=== PATIENT | male | born 1985 | race Hispanic/Latino ===

== ENCOUNTER 2018-04-15 18:29 | Observation (INO) | payer SELFPAY ==
[2018-04-15] MEDS ORDERED: Diltiazem HCl 125 MG, Admixture Fee 1 EACH in Sodium Chloride 0.9% 100 ML IVPB SCH (19:00)
[2018-04-15] MEDS ORDERED: Digoxin 0.5 MG/2 ML AMP ONE (19:10)
[2018-04-15 19:50] LABS: Troponin I Less than 0.010 ng/mL (< 0.028)
[2018-04-15 22:43] LABS: Amphetamine Not Detected (NotDetected); Barbiturates Screen Not Detected (NotDetected); Benzodiazepine Screen Not Detected (NotDetected); Cocaine Metabolite Screen Not Detected (NotDetected); Medtox Reader # READER 4; Methamphetamine Not Detected (NotDetected); Opiate Screen Not Detected (NotDetected); Oxycodone Screen Not Detected (NotDetected); Phencyclidine (PCP) Not Detected (NotDetected); THC/Cannabinoid Screen Not Detected (NotDetected); Tricyclic Screen Not Detected (NotDetected)
[2018-04-15 22:44] LABS: Medtox Control Line Valid? VALID (VALID); Methadone Not Detected (NotDetected)
[2018-04-15 22:58] LABS: Troponin I Less than 0.010 ng/mL (< 0.028)
[2018-04-15 23:50] VITALS: BMI 51.7
[2018-04-16] MEDS ORDERED: Enoxaparin Sodium 120 MG/0.8 ML SYRINGE SC SCH (00:40)
[2018-04-16] MEDS ORDERED: Acetaminophen 325 MG TAB PO PRN (00:40)
[2018-04-16] MEDS ORDERED: Enoxaparin Sodium 40 MG/0.4 ML SYRINGE SC SCH (00:40)
[2018-04-16] MEDS ORDERED: Diltiazem 125 MG in Sodium Chloride 0.9% 100 ML IVPB SCH (00:45)
[2018-04-16 01:30] LABS: ALT (SGPT) 37 U/L (8-55); AST (SGOT) 19 U/L (5-34); Albumin 4.2 g/dL (3.5-5.0); Alkaline Phosphatase 61 U/L (40-150); Anion Gap 15 mmol/L (10-20); BUN (Urea Nitrogen) 9 mg/dL (8.9-20.6); Bilirubin, Total 0.5 mg/dL (0.2-1.2); Calc. Creatinine Clearance 284 mL/min (70-130); Calcium 9.9 mg/dL (7.8-10.44); Carbon Dioxide 23 mmol/L (22-29); Chloride 106 mmol/L (98-107); Estimated GFR-MDRD Greater than 90; Globulin 3.2 g/dL (2.4-3.5); Glucose 124 mg/dL (70-105); Potassium 3.6 mmol/L (3.5-5.1); Protein, Total 7.4 g/dL (6.0-8.3); Sodium 140 mmol/L (136-145)
[2018-04-16] MEDS: Sodium Chloride 0.9% 1,000 ML IV SCH ×2 (01:47→17:30)
--- NOTE | 2018-04-16 04:18 | HP ---
REASON FOR ADMISSION: New-onset atrial fibrillation with RVR. HISTORY OF PRESENTING ILLNESS: Patient gives history of waking up with palpitations and shortness of breath around 10 in the morning. He also developed headache and chest pressure-like feeling. His left arm was tingling as well. He took 4 tablets of 81 mg aspirin. Around 12:00 p.m., patient went to his mom's house and was still feeling dizzy. His and other family members finally prompted him to go to [facility]. On arrival there, patient was found to be in atrial fibrillation with RVR. He was given a total of 20 mg IV push Cardizem x2 and was placed on 10 mg an hour Cardizem drip and was transferred here. Currently, he has no complaints of chest pressure, headache, or shortness of breath. He currently has converted to sinus rhythm, as I examine him. No complaints of cough or expectoration. Patient has never had any prior cardiac workup. He has never had atrial fibrillation in the past. PAST MEDICAL AND SURGICAL HISTORY: Anxiety disorder, morbid obesity, weighing nearly 167 kilos. CURRENT MEDICATIONS: None. ALLERGIES: No known drug allergies. PERSONAL HISTORY: Does not abuse alcohol or drugs. No history of smoking, but chews tobacco. FAMILY HISTORY: Mother has hypertension and diabetes. Father of throat cancer which had metastasized to spine and other places at the age of 59 years. Patient owns a food truck. CODE STATUS: FULL. Power of contracts attorney is his . REVIEW OF SYSTEMS: The following complete review of systems was negative, unless otherwise mentioned in the HPI or below: Constitutional: Weight loss or gain, ability to conduct usual activities. Skin: Rash, itching. Eyes: Double vision, pain. ENT/Mouth: Nose bleeding, neck stiffness, pain, tenderness. Cardiovascular: Palpitations, dyspnea on exertion, orthopnea. Respiratory: Shortness of breath, wheezing, cough, hemoptysis, fever, or night sweats. Gastrointestinal: Poor appetite, abdominal pain, heartburn, nausea, vomiting, constipation, or diarrhea. Genitourinary: Urgency, frequency, dysuria, nocturia. Musculoskeletal: Pain, swelling. Neurologic/Psychiatric: Anxiety, depression. Allergy/Immunologic: Skin rash, bleeding tendency. PHYSICAL EXAMINATION: GENERAL: The patient is a 33-year-old male who is currently not in any acute distress. VITAL SIGNS: Blood pressure 130/98, pulse is 80 at present, respiratory rate 16 per minute, temperature 98.4 degrees Fahrenheit, saturating 96% on room air. NECK: Supple, no elevated JVD. HEENT: Extraocular muscles intact. Pupils reacting to light. Oral cavity mucous membranes are moist. No exudates or congestion. CARDIOVASCULAR SYSTEM: S1, S2 heard. Regular rhythm. RESPIRATORY SYSTEM: Air entry 1+ bilaterally. No rales or rhonchi. ABDOMEN: Soft, bowel sounds heard. No tenderness, rigidity, or guarding. EXTREMITIES: No peripheral edema or calf tenderness. VASCULAR SYSTEM: Peripheral pulses 1+ bilateral, no ischemic ulcerations or gangrene. CENTRAL NERVOUS SYSTEM: No gross focal deficits noted. Patient is alert, awake , oriented well. PSYCHIATRIC SYSTEM: The patient's mood is euthymic. No hallucinations or delusions. LABORATORY DATA AND X-RAY FINDINGS: White count of 11, H&H 16 and 47, platelet count 309, MCV is 90 with 74% neutrophils. PT, INR, PTT within normal limits. Magnesium is 1.8. Troponin x3 is negative. CK-MB 1.7. TSH 1.09. Urine drug screen is negative. Chest x-ray done shows mild cardiomegaly, otherwise no acute infiltrate. EKG done at 6:37 p.m. shows atrial fibrillation with RVR at 159 beats per minute. Repeat EKG done at 10:15 p.m. shows him to be in normal sinus rhythm. CLINICAL IMPRESSION AND PLAN: Patient will be under observation on telemetry for atrial fibrillation with rapid ventricular response. He is currently on 7.5 mg an hour of Cardizem, we will bring him down to 5 mg an hour as the patient is in sinus rhythm. Please note patient received Cardizem IV push 20 mg x2, digoxin 0.5 mg IV x1, was on Cardizem 10 mg an hour and finally converted to sinus rhythm. We will continue him at 5 mg [address] hour and place him on Lopressor 25 mg twice daily for now. He will be on aspirin 81 mg daily. One full dose of Lovenox will be given for a total of 160 mg of Lovenox 1 dose per kg body weight now. He will be on normal saline at 60 mL per hour. We will obtain echo with 2D Doppler for LV function and to rule out thrombus. We will also consult Dr. Rao on-call for Cardiology. Lipid profile will be obtained as well. The patient is morbidly obese and was counseled regarding lifestyle changes including healthy eating and losing weight. We will obtain thyroid function tests in the morning including free T3, free T4 and TSH as well. GAGANDEEP
[2018-04-16 05:33] LABS: #Basophils 0.1 thou/uL (0.0-0.2); #Eosinphils 0.2 thou/uL (0.0-0.7); #Lymphocytes 3.7 thou/uL (1.20-3.40); #Monocytes 0.7 thou/uL (0.11-0.59); #Neutrophils 7.8 thou/uL (1.40-6.50); %Basophils 0.5 % (0.0-1.0); %Eosinophils 1.8 % (0.0-10.0); %Lymphocytes 29.6 % (21.0-51.0); %Monocytes 5.6 % (0.0-10.0); %Neutrophils 62.4 % (42.0-75.0); Hemoglobin 15.2 g/dL (14.0-18.0); Mean Corpuscular HGB CONC 35.6 g/dL (32.0-36.0); Mean Corpuscular Hemoglobin 32.9 pg (27.0-31.0); Mean Corpuscular Volume 92.4 fL (78.0-98.0); Mean Platelet Volume 7.2 fL (7.4-10.4); Platelet Count 283 thou/uL (130-400); RBC Distribution Width 11.9 % (11.5-14.5); Red Blood Cell (RBC) Count 4.61 mill/uL (4.70-6.10); White Blood Cell (WBC) Count 12.5 thou/uL (4.8-10.8)
[2018-04-16 05:53] LABS: Anion Gap 14 mmol/L (10-20); BUN (Urea Nitrogen) 10 mg/dL (8.9-20.6); Calc. Creatinine Clearance 295 mL/min (70-130); Calcium 9.9 mg/dL (7.8-10.44); Carbon Dioxide 25 mmol/L (22-29); Cardiac Risk 4.8 (Less than 4.5); Chloride 105 mmol/L (98-107); Cholesterol 150 mg/dl (< 200 Desired); Estimated GFR-MDRD Greater than 90; Glucose 123 mg/dL (70-105); HDL Cholesterol 31 mg/dL (>60 Neg Risk); LDL Cholesterol, Calculated 49 mg/dL; Potassium 3.6 mmol/L (3.5-5.1); Sodium 140 mmol/L (136-145); Triglycerides 348 mg/dL (Less than 150)
[2018-04-16] MEDS: Metoprolol Tartrate 25 MG TAB PO SCH ×2 (08:45→19:44)
[2018-04-16] MEDS: Famotidine 20 MG TAB PO SCH ×2 (08:47→19:44)
--- NOTE | 2018-04-16 12:41 | CON-2 ---
DATE OF CONSULTATION: 04/16/2018 CONSULTING PHYSICIAN: Dr. Becky Rao CHIEF COMPLAINT: Irregular heartbeat. HISTORY OF PRESENT ILLNESS: This is a 33-year-old male who came in yesterday around midday when he woke up in the morning around 10:00 a.m. and started having irregular heartbeat, chest pressu re, having shortness of breath. A couple hours later, he reported having some dizziness. He said he tried sitting around for a couple hours, it did not go away. Denied any vision changes. He said he had some tingling in his left arm. He said he took a couple aspirin, but nothing seemed to make it better. This time he was brought into the ER, was found to be in atrial fibrillation with RVR. He w as given 2 doses of 20 mg IV Cardizem, given digoxin 0.05 mg IV as well. He would be placed on a Car dizem drip at 10 mg. He would eventually convert to sinus rhythm around 10:00 at night. They then c ut back his Cardizem to 5 mg IV and eventually his Cardizem was stopped earlier this morning. The adal best is currently in sinus rhythm, not having any chest pain. Denies any dizziness at this time. F eeling better. In talking with the patient, does report the patient having trouble snoring at night, seems to b e short of breath. The patient reports too sometimes when he has his neck in certain positions he do es get shortness of breath as well. Patient is 168 kilograms. PAST MEDICAL HISTORY: Anxiety. PAST SURGICAL HISTORY: None. MEDICATIONS: None. ALLERGIES: No known drug allergies. SOCIAL HISTORY: He was a 1 pack per day smoker for 12 years, he quit 8 years ago. Occasional alcoho l use, no illicit drug use. FAMILY HISTORY: Mother has hypertension, diabetes. Father of throat cancer. 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 REVIEW OF SYSTEMS: All review of systems are negative, unless noted in the history of present illnes s. At this time, cardiac, denied any chest pain, denied any shortness of breath. Denied any wheezin g. PHYSICAL EXAMINATION: VITAL SIGNS: Temperature was 98.0, pulse was 73, respirations 14, O2 is 97% on room air, blood press ure was 175/77. GENERAL: Alert and oriented, atraumatic. CARDIOVASCULAR: Regular rate and rhythm. No murmurs or gallops. No edema noted in the lower extrem ities. LUNGS: Clear to auscultation bilaterally. No wheezes or crackles. EXTREMITIES: Moves all extremities. No abnormality noted. IMAGING: Chest x-ray shows borderline heart size. Initial EKG showed atrial fibrillation with RVR and then repeat EKG showed conversion to sinus rhythm around 10:00 last night. ASSESSMENT AND PLAN: 1. New onset atrial fibrillation. 2. Suspected hypertension. 3. Morbid obesity. 4. Suspected sleep apnea. PLAN: At this time, we will continue the Lopressor 25 mg b.i.d. for rate control. We will also give him some samples of Xarelto for a couple weeks and recommend that the patient follow up with PCP to continue getting his blood pressure checked and get his blood pressure under control. Also talked wi th him extensively about weight loss and how it would help with his suspected sleep apnea. Also kennedy mmended he can get a sleep study depending on the patient.
--- NOTE | 2018-04-16 23:29 | PDOC.PN ---
- Subjective Encounter Start Date: 04/16/18 Encounter Start Time: 19:00 Subjective: nsg notes rev, ivana ovn, pt's at bedside -: pt no new c/o, discussed risk factor modification and lifestyle changes - Objective Resuscitation Status: Resuscitation Status FULL:Full Resuscitation Vital Signs & Weight: Vital Signs (12 hours) Temp Pulse Resp BP Pulse Ox 04/16/18 20:07 98.0 F 82 18 04/16/18 19:35 98.0 F 82 18 133/73 96 04/16/18 16:11 98.1 F 82 14 131/73 98 04/16/18 11:45 98.3 F 80 16 138/69 98 Weight Weight 371 lb 6.4 oz I&O: 04/15/18 04/16/18 04/17/18 06:59 06:59 06:59 Intake Total 1328 Output Total 325 Balance -325 1328 Result Diagrams: 04/16/18 04:31 04/16/18 04:31 Phys Exam - Physical Examination Constitutional: NAD HEENT: PERRLA, moist MMs, sclera anicteric Neck: no nodes, no JVD Respiratory: no wheezing, no rales, no rhonchi, clear to auscultation bilateral Cardiovascular: RRR, no significant murmur, no rub Gastrointestinal: soft, non-tender, no distention, positive bowel sounds Musculoskeletal: no edema, pulses present Neurological: moves all 4 limbs Psychiatric: normal affect, A&O x 3 Dx/Plan - Plan cont current plan of care * afib with RVR * pending ECHO * rate ctrlled on metoprolol * asa obesity * d/w pt elev TG and need for lifestyle modification, weight loss, and re- assessment in the near future * both pt and able to complete teachback diet: as above activity: as corwin dvt ppx Review of Systems - Medications/Allergies Allergies/Adverse Reactions: Allergies Allergy/AdvReac Type Severity Reaction Status Date / Time No Known Drug Allergies Allergy Verified 04/16/18 00:04
[2018-04-17] MEDS: Famotidine 20 MG TAB PO SCH (08:34)
[2018-04-17] MEDS: Metoprolol Tartrate 25 MG TAB PO SCH (08:34)
--- NOTE | 2018-04-17 10:13 | ADD-PRG ---
ADDENDUM DATE OF SERVICE: 04/16/2018 Echocardiogram was done today showed normal left ventricular function, mildly enlarged left atrium. No valvular heart disease. The blood pressures were taken with a large cuff are all normal 130/70. ASSESSMENT: Atrial fibrillation paroxysmal, CHADS VASc 0. PLAN: 1. Go home on metoprolol 25 mg twice a day. 2. Precaution, we gave him Xarelto to take 20 mg a day for 2 weeks only. Long-term anticoagulation not indicated with CHADS VASc 0.
--- NOTE | 2018-04-17 10:21 | PRG ---
DATE OF SERVICE: 04/17/2018 HISTORY: Mr. Borrego is doing well, no complaints. He feels well. His rhythm remains sinus rhythm. PHYSICAL EXAMINATION: VITAL SIGNS: His blood pressure when it was taken with a large cuff is normal 117/62, pulse 74. LUNGS: Clear. CARDIAC: Normal S1, S2. Echocardiogram showed normal left ventricular function, mildly enlarged left atrium. ASSESSMENT: 1. Paroxysmal atrial fibrillation. 2. Morbid obesity. 3. Probably underlying sleep apnea. 4. Candido Vas 0, long-term anticoagulation not indicated. PLAN: 1. Go home on metoprolol 25 mg twice a day. 2. Follow up with primary care physician. 3. Discussed with the patient about getting a pulse oximeter, as most the easy and relatively accura te way of checking his heart rate if he is concerned. 3. I will be glad to see him if he has problems. He understands long-term weight loss is the most i mportant thing he can do to try to prevent recurrence of fibrillation. I also discussed sleep study, but he indicates that there would be a financial barrier for him. If he does have sleep apnea the m ost important thing to do is lose weight, which he understands. He is 5 foot 11 inches tall, 370 batsheva nds.
[2018-04-17] MEDS: Sodium Chloride 0.9% 1,000 ML IV SCH (13:26)
[2018-04-17 14:43] VITALS: BP 137/65; TEMP 98.2
== END 2018-04-17 14:58 | disposition home or self-care (01) ==
LOC: ERS 18:29 → 2NO 23:43
PROVIDERS: ADMIT Internal Medicine; ATTEND Internal Medicine
DX: I48.0 Paroxysmal atrial fibrillation (principal); F41.9 Anxiety disorder, unspecified; E66.01 Morbid (severe) obesity due to excess calories; Z87.891 Personal history of nicotine dependence; Z68.43 Body mass index [BMI] 50.0-59.9, adult
CPT/HCPCS: 36415; 80053; 80061; 80306; 83735; 84443; 85025; 93005; 93306; 94760; 96365; 96366; 96372; 96375; 96376; 99406; A4216; G0378; J1160; J1650; J7050

== ENCOUNTER 2018-05-07 11:51 | Observation (INO) | payer OTHER, SELFPAY ==
[~2018-05-07 11:51] MED LIST: ISOVUE-370 76%-LOCM 1 ML ONE
[2018-05-07 12:15] LABS: #Eosinphils 0.1 thou/uL (0.0-0.7); #Lymphocytes 1.8 thou/uL (1.20-3.40); #Monocytes 0.4 thou/uL (0.11-0.59); %Basophils 0.4 % (0.0-1.0); %Eosinophils 0.7 % (0.0-10.0); %Lymphocytes 19.4 % (21.0-51.0); %Neutrophils 75.5 % (42.0-75.0); Hemoglobin 16.3 g/dL (14.0-18.0); Mean Corpuscular HGB CONC 35.3 g/dL (32.0-36.0); Mean Corpuscular Hemoglobin 32.6 pg (27.0-31.0); Mean Corpuscular Volume 92.4 fL (78.0-98.0); Mean Platelet Volume 7.3 fL (7.4-10.4); Platelet Count 260 thou/uL (130-400); RBC Distribution Width 11.4 % (11.5-14.5); Red Blood Cell (RBC) Count 4.98 mill/uL (4.70-6.10); White Blood Cell (WBC) Count 9.3 thou/uL (4.8-10.8)
[2018-05-07 12:37] LABS: ALT (SGPT) 50 U/L (8-55); AST (SGOT) 25 U/L (5-34); Albumin 4.7 g/dL (3.5-5.0); Alkaline Phosphatase 63 U/L (40-150); Anion Gap 14 mmol/L (10-20); BUN (Urea Nitrogen) 13 mg/dL (8.9-20.6); Bilirubin, Total 0.4 mg/dL (0.2-1.2); CK (CPK) 135 U/L (30-200); Calc. Creatinine Clearance 0 mL/min (70-130); Carbon Dioxide 24 mmol/L (22-29); Chloride 106 mmol/L (98-107); Estimated GFR-MDRD 87; Globulin 3.6 g/dL (2.4-3.5); Glucose 118 mg/dL (70-105); Potassium 3.9 mmol/L (3.5-5.1); Protein, Total 8.3 g/dL (6.0-8.3); Sodium 140 mmol/L (136-145)
[2018-05-07 12:39] LABS: INR-International Normal Ratio 1.1; PTT 31.1 SEC (22.9-36.1); Prothrombin Time 13.8 SEC (12.0-14.7)
[2018-05-07 12:40] LABS: CKMB 0.9 ng/mL (0-6.6); Troponin I Less than 0.010 ng/mL (< 0.028)
--- NOTE | 2018-05-07 13:54 | RAD ---
PORTABLE CHEST: 05/07/2018 PROVIDED CLINICAL HISTORY: Dyspnea. COMPARISON: 04/15/2018 FINDINGS: The cardiac silhouette appears prominent, likely this is partially on the basis of the portable techn ique. No focal consolidation, pleural fluid, or pneumothorax apparent. IMPRESSION: No evidence for an acute cardiopulmonary process. POS: [facility]
--- NOTE | 2018-05-07 15:33 | CT ---
CT PULMONARY ANGIOGRAM WITH IV CONTRAST AND 3D MIP RECONSTRUCTIONS: Date: 05-07-18 Provided Clinical History: Dyspnea. Chest pain. FINDINGS: There is no evidence for central or segmental pulmonary embolus. Minimal coronary calcium is seen. Th e heart, pericardium and great vessels appear otherwise unremarkable for the phase of contrast in [facility] this study was acquired. The lungs are free of significant opacity. No pleural fluid or pneumothor ax apparent. The airway appears patent and of normal caliber. The visualized portions of the upper ab domen demonstrate no acute abnormality. The osseous structures demonstrate no concerning lytic or lindsey stic lesions. IMPRESSION: 1. No evidence for central or segmental pulmonary embolus 2. Minimal coronary calcium. POS: [facility]
[2018-05-07 16:41] LABS: Troponin I Less than 0.010 ng/mL (< 0.028)
[2018-05-07] MEDS ORDERED: Ondansetron HCl/PF 4 MG/2 ML Vial IVP PRN (17:46)
[2018-05-07] MEDS ORDERED: Acetaminophen 325 MG TAB PO PRN (17:46)
[2018-05-07] MEDS ORDERED: Ondansetron ODT 4 MG TAB SL PRN (17:46)
[2018-05-07 17:54] VITALS: BMI 50.2
[2018-05-07 19:39] LABS: Troponin I 0.032 ng/mL (< 0.028)
[2018-05-07] MEDS ORDERED: Metoprolol Tartrate 25 MG TAB PO SCH (22:45)
[2018-05-07] MEDS: ALPRAZolam 0.25 MG TAB PO PRN (23:00)
[2018-05-08 01:15] LABS: Troponin I Less than 0.010 ng/mL (< 0.028)
--- NOTE | 2018-05-08 02:39 | HP ---
TIME OF EVALUATION: 8:45 p.m. CODE STATUS: FULL CODE. PRIMARY CARE PHYSICIAN: Clarice Sanchez MD CHIEF COMPLAINT: Chest pain and shortness of breath. HISTORY OF PRESENT ILLNESS: This is a 33-year-old male patient with past medical history of obesity, recently admitted and discharged from the hospital due to new onset atrial fibrillation, has been st arted on beta-blockers, was supposed to follow up with Dr. Rao, as reported he is unable to follow with him due to financial issues. He came to the hospital after having a chest pain, that has been on and off, usually lasted for 15-20 minutes, with no clear triggers, no alleviating factors. When t he pain is present, pain can be moderate about 5/10. He also reported associated generalized weaknes s and also having dizzy spells. In one occasion, he was not able to continue driving. REVIEW OF SYSTEMS: Constitutional: No fever or chills or generalized weakness. Respiratory: No co ugh or sputum production or shortness of breath. Cardiovascular: The patient reports no chest pain, palpitations, shortness of breath. Symptoms are reported as above. Gastrointestinal: No nausea or vomiting, diarrhea or abdominal pain. Central Nervous Systems: No dizziness, headache, or feeling lightheaded. Genitourinary: No burning on urination. Extremities: No leg swelling. All other sys tems were reviewed and are negative except for the findings mentioned above. PAST MEDICAL HISTORY: Positive for morbid obesity, atrial fibrillation, recently diagnosed. PAST SURGICAL HISTORY: No surgical history. PSYCHIATRIC HISTORY: Anxiety. SOCIAL HISTORY: Drinks socially every week. No drug use. No smokes. ALLERGIES: No known drug allergies. REPORTED MEDICATIONS: Alprazolam, paroxetine, metoprolol, aspirin. PHYSICAL EXAMINATION: VITAL SIGNS: On presentation, heart rate 101, respiratory rate 19, temperature 98.8, pain was 8/10, oxygen saturation 96% on room air. GENERAL APPEARANCE: Patient is alert, oriented, in no any acute distress. HEAD AND EYES: Normal conjunctivae, moist oral mucosa, anicteric. NECK: No JVD. RESPIRATORY: Bilateral air entry. No rales, no wheezing. Symmetric expansion. CARDIOVASCULAR: Normal rate, regular rhythm. No murmurs, no gallop, no edema. ABDOMEN: Soft, normal bowel sounds. MUSCULOSKELETAL: Baseline range of motion and strength. No tenderness. SKIN: Warm and intact. No pallor, no rash, no redness. NEUROLOGIC: Baseline sensorium. No evidence of any new focal weakness. Baseline speech. Cranial n erve seems to be intact. PSYCHIATRIC: The patient is in good mood. No anxiety. Oriented, optimal judgement. IMAGING: EKG was reviewed. The patient's EKG shows a sinus rhythm with short KS, otherwise normal E KG, ventricular rate 97, KS 104, QRS 88, QT corrected 416. The chest CT was negative with . LABORATORY DATA: Reviewed. White count 9.3, hemoglobin 16.3, MCV 92.4, platelet count 260,000. Coa gulation was negative. Sodium 140, potassium 3.9, chloride 106, carbon dioxide 24, anion gap 14, BUN 13, creatinine 0.9, glucose 118. Troponin was done x3. Initial troponin 0.01, second one was 0.032 , then last one was negative. ASSESSMENT AND PLAN: The patient will be placed in the hospital with following medical problem: 1. Chest pain, rule out acute coronary syndrome, patient has history of atrial fibrillation, could b e related to arrhythmia, the patient has been seen by Dr. Rao, was supposed to have followup as ou tpatient, but was unable to. We will consult Dr. Rao for further adjustment medical treatment. S lorena patient has been complaining that the heart rate has been dropping and he has been filling these pills. We will follow recommendations. 2. Morbidly obese. We have counseled the patient regarding benefits of losing weight and we have al so talked about that, he has stated he would like to continue losing weight through Health. 3. History of atrial fibrillation. Reconcile home medications. We will monitor on tele. 4. Deep venous thrombosis prophylaxis. 5. Hyperglycemia, this is mild, blood sugar 190, we will monitor, could be related acute distress ve rsus an intolerance to glucose due to obesity.
[2018-05-08 05:32] LABS: #Basophils 0.1 thou/uL (0.0-0.2); #Eosinphils 0.2 thou/uL (0.0-0.7); #Lymphocytes 3.7 thou/uL (1.20-3.40); #Monocytes 0.6 thou/uL (0.11-0.59); #Neutrophils 6.2 thou/uL (1.40-6.50); %Basophils 0.6 % (0.0-1.0); %Eosinophils 2.3 % (0.0-10.0); %Lymphocytes 34.4 % (21.0-51.0); %Monocytes 5.6 % (0.0-10.0); %Neutrophils 57.2 % (42.0-75.0); Mean Corpuscular HGB CONC 34.8 g/dL (32.0-36.0); Mean Corpuscular Hemoglobin 32.7 pg (27.0-31.0); Mean Corpuscular Volume 94.1 fL (78.0-98.0); Mean Platelet Volume 7.6 fL (7.4-10.4); Platelet Count 240 thou/uL (130-400); RBC Distribution Width 11.5 % (11.5-14.5); Red Blood Cell (RBC) Count 4.29 mill/uL (4.70-6.10); White Blood Cell (WBC) Count 10.9 thou/uL (4.8-10.8)
[2018-05-08 05:54] LABS: Anion Gap 15 mmol/L (10-20); BUN (Urea Nitrogen) 15 mg/dL (8.9-20.6); Calc. Creatinine Clearance 256 mL/min (70-130); Calcium 9.3 mg/dL (7.8-10.44); Carbon Dioxide 23 mmol/L (22-29); Chloride 106 mmol/L (98-107); Estimated GFR-MDRD Greater than 90; Glucose 89 mg/dL (70-105); Potassium 3.7 mmol/L (3.5-5.1); Sodium 140 mmol/L (136-145)
[2018-05-08] MEDS: PARoxetine 20 MG TAB PO SCH (08:07)
[2018-05-08] MEDS: Enoxaparin Sodium 40 MG/0.4 ML SYRINGE SC SCH (08:08)
[2018-05-08] MEDS ORDERED: Loperamide HCl 2 MG CAP PO PRN (08:15)
[2018-05-08] MEDS ORDERED: Sodium Chloride 0.65% Nasal 44 ML BOT EA NARE PRN (08:15)
[2018-05-08] MEDS ORDERED: Acetaminophen 325 MG TAB PO PRN (08:15)
[2018-05-08] MEDS ORDERED: Ondansetron ODT 4 MG TAB PO PRN (08:15)
[2018-05-08] MEDS ORDERED: Milk Of Magnesia 30 ML UDCUP PO PRN (08:15)
[2018-05-08] MEDS ORDERED: Eucerin (Mineral Oil/Petrolatum,White) 30 gm Jar TOP PRN (08:15)
[2018-05-08] MEDS ORDERED: Loratadine 10 MG TAB PO PRN (08:15)
[2018-05-08] MEDS ORDERED: Ondansetron HCl/PF 4 MG/2 ML Vial IVP PRN (08:15)
[2018-05-08] MEDS ORDERED: Famotidine 20 MG TAB PO PRN (08:15)
[2018-05-08] MEDS ORDERED: Mag-Al 1200 mg/1200 mg/30 ML UDCUP PO PRN (08:15)
[2018-05-08] MEDS ORDERED: Artificial Tear Sol 15 ML BOT EA EYE PRN (08:15)
[2018-05-08] MEDS ORDERED: Nitroglycerin 0.4 MG TAB (25 Tab Bottle) SL PRN (08:15)
[2018-05-08] MEDS ORDERED: HYDROcodone/Acetaminophen 5/325 mg Tablet PO PRN (08:15)
[2018-05-08] MEDS ORDERED: hydrALAZINE 20 MG/ML VIAL SLOW IVP PRN (08:15)
[2018-05-08] MEDS ORDERED: Chloraseptic Spray 180 ml Bottle PO PRN (08:15)
[2018-05-08] MEDS ORDERED: Zolpidem Tartrate 5 MG TAB PO PRN (08:15)
[2018-05-08] MEDS ORDERED: Diabetic Tussin 200 MG/10 ML UDCUP PO PRN (08:15)
[2018-05-08] MEDS ORDERED: Senokot 8.6 MG TAB PO PRN (08:15)
[2018-05-08 08:51] LABS: Cardiac Risk 4.5 (Less than 4.5)
[2018-05-08] MEDS ORDERED: Metoprolol Tartrate 25 MG TAB PO SCH (09:00)
[2018-05-08] MEDS ORDERED: Ketorolac Tromethamine 30 MG/ML VIAL IVP SCH (10:45)
--- NOTE | 2018-05-08 13:22 | PDOC.PN ---
- Subjective Encounter Start Date: 05/08/18 Encounter Start Time: 07:50 -: old records requested/rev Patient seen and examined. No new complaints. No overnight events - Objective Resuscitation Status: Resuscitation Status FULL:Full Resuscitation MAR Reviewed: Yes Vital Signs & Weight: Vital Signs (12 hours) Temp Pulse Resp BP Pulse Ox 05/08/18 11:18 98.3 F 64 20 118/60 94 L 05/08/18 08:15 97.4 F L 52 L 20 05/08/18 07:29 97.4 F L 52 L 20 109/55 L 94 L 05/08/18 04:28 98.0 F 61 16 112/55 L 94 L I&O: 05/07/18 05/08/18 05/09/18 06:59 06:59 06:59 Intake Total 400 Balance 400 Result Diagrams: 05/08/18 04:47 05/08/18 04:47 Radiology Reviewed by me: Yes EKG Reviewed by me: Yes Phys Exam - Physical Examination Constitutional: NAD HEENT: PERRLA, moist MMs, sclera anicteric Neck: no JVD, supple Respiratory: no wheezing, no rales, no rhonchi Cardiovascular: RRR, no significant murmur, no rub Gastrointestinal: soft, non-tender, no distention, positive bowel sounds Musculoskeletal: no edema, pulses present Neurological: non-focal, normal sensation, moves all 4 limbs Lymphatic: no nodes Psychiatric: normal affect, A&O x 3 Skin: no rash, normal turgor Dx/Plan (1) Chest pain Code(s): R07.9 - CHEST PAIN, UNSPECIFIED Status: Acute (2) Anxiety and depression Code(s): F41.9 - ANXIETY DISORDER, UNSPECIFIED; F32.9 - MAJOR DEPRESSIVE DISORDER, SINGLE EPISODE, UNSPECIFIED Status: Chronic (3) Morbid obesity with BMI of 50.0-59.9, adult Code(s): E66.01 - MORBID (SEVERE) OBESITY DUE TO EXCESS CALORIES; Z68.43 - BODY MASS INDEX (BMI) 50-59.9 , ADULT Status: Chronic (4) Paroxysmal atrial fibrillation Code(s): I48.0 - PAROXYSMAL ATRIAL FIBRILLATION Status: Chronic - Plan cont current plan of care, plan discussed w/ family * today stress test, if negative will consider discharge * later on US RUQ * will need outpt sleep study to rule out KEELY * toradol one time for headache * medication reviewed as below * symptomatic treatment. Review of Systems - Review of Systems Eyes: negative: Pain, Vision Change, Conjunctivae Inflammation, Eyelid Inflammation, Redness, Other ENT: negative: Ear Pain, Ear Discharge, Nose Pain, Nose Discharge, Nose Congestion, Mouth Pain, Mouth Swelling, Throat Pain, Throat Swelling, Other Respiratory: negative: Cough, Dry, Shortness of Breath, Hemoptysis, SOB with Excertion, Pleuritic Pain, Sputum, Wheezing Cardiovascular: negative: chest pain, palpitations, orthopnea, paroxysmal nocturnal dyspnea, edema, light headedness, other Gastrointestinal: negative: Nausea, Vomiting, Abdominal Pain, Diarrhea, Constipation, Melena, Hematochezia, Other Genitourinary: negative: Dysuria, Frequency, Incontinence, Hematuria, Retention , Other Musculoskeletal: negative: Neck Pain, Shoulder Pain, Arm Pain, Back Pain, Hand Pain, Leg Pain, Foot Pain, Other Skin: negative: Rash, Lesions, [place], Bruising, Other - Medications/Allergies Allergies/Adverse Reactions: Allergies Allergy/AdvReac Type Severity Reaction Status Date / Time No Known Drug Allergies Allergy Verified 04/16/18 00:04 Medications: Current Medications Acetaminophen (Tylenol) 650 mg PO Q4H PRN PRN Reason: Headache/Fever or Mild Pain Hydrocodone Bitart/Acetaminophen ([place] 5/325) 1 tab PO Q4H PRN PRN Reason: Moderate Pain (4-6) Al Hydroxide/Mg Hydroxide (Maalox) 15 ml PO Q4H PRN PRN Reason: Heartburn or Indigestion Alprazolam (Xanax) 0.25 mg PO Q6H PRN PRN Reason: Anxiety Last Admin: 05/07/18 23:00 Dose: 0.25 mg Artificial Tears (Tears Renewed 15ml Bottle) 0 drop EA EYE PRN PRN PRN Reason: Dry Eyes Aspirin (Aspirin Chewable) 81 mg PO DAILY [facility] Last Admin: 05/08/18 08:07 Dose: 81 mg Enoxaparin Sodium (Lovenox) 40 mg SC 0900 [facility] Last Admin: 05/08/18 08:08 Dose: Not Given Famotidine (Pepcid) 20 mg PO BIDPRN PRN PRN Reason: Heartburn or Indigestion Guaifenesin (Robitussin Sf) 200 mg PO Q4H PRN PRN Reason: Cough Hydralazine HCl (Apresoline) 10 mg SLOW IVP Q4H PRN PRN Reason: Systolic BP > 180 Loperamide HCl (Imodium) 2 mg PO PRN PRN PRN Reason: Diarrhea/Loose Stools Loratadine (Claritin) 10 mg PO DAILYPRN PRN PRN Reason: Sinus Symptoms Magnesium Hydroxide (Milk Of Magnesium) 30 ml PO DAILYPRN PRN PRN Reason: Constipation Mineral Oil/White Petrolatum (Eucerin Cream) 0 gm TOP BIDPRN PRN PRN Reason: Dry Skin Nitroglycerin (Nitrostat) 0.4 mg SL Q5MIN PRN PRN Reason: Chest Pain Ondansetron HCl (Zofran Odt) 4 mg PO Q6H PRN PRN Reason: Nausea/Vomiting Ondansetron HCl (Zofran) 4 mg IVP Q6H PRN PRN Reason: Nausea/Vomiting Paroxetine HCl (Paxil) 10 mg PO DAILY [facility] Last Admin: 05/08/18 08:07 Dose: 10 mg Phenol (Chloraseptic [place] 180 Ml Bot) 0 ml PO PRN PRN PRN Reason: Sore Throat Senna (Senokot) 2 tab PO HSPRN PRN PRN Reason: Constipation Sodium Chloride ([place] Nasal [place] 0.65%) 0 ml EA NARE QIDPRN PRN PRN Reason: Nasal Congestion Zolpidem Tartrate (Ambien) 5 mg PO HSPRN PRN PRN Reason: Insomnia
--- NOTE | 2018-05-08 16:42 | ULT ---
GALLBLADDER ULTRASOUND: HISTORY: Chest pain. COMPARISON: None. TECHNIQUE: Utilizing a Multi-Hertz transducer, sonographic imaging of the gallbladder is performed in the longit udinal and transverse planes. FINDINGS: There is artifact throughout all the static images. Increased echogenicity in the liver may, in part, be artifactual; however, the possibility of hepatoc ellular disease is raised. Limited evaluation for hepatic masses and intrahepatic biliary dilatation due to artifact. The right hepatic colon measures 18.8 cm. Suboptimal evaluation of the right kidney. Grossly, no hydronephrosis. Suboptimal evaluation of the pancreas. Common bile duct diameter is 0.5 cm. No sonographic evidence of cholelithiasis. No gallbladder wall thickening or pericholecystic fluid. Negative Mai sign. IMPRESSION: 1. Limited evaluation due to artifact. There is hepatomegaly. 2. Increased echogenicity of the liver may be due to artifact. Correlate for hepatocellular disease . CT angiogram chest on 05/07/2018 does not demonstrate hepatic steatosis. POS: [facility]
--- NOTE | 2018-05-08 19:04 | CON ---
DATE OF CONSULTATION: 05/08/2018 CARDIOLOGY CONSULTATION REASON FOR CONSULTATION: Chest pain, recent episode of atrial fibrillation. HISTORY OF PRESENT ILLNESS: Mr. Borrego is a 33-year-old gentleman, recently admitted to the hospital with atrial fibrillation with a rapid rate. He underwent echocardiography, which showed mild left a trial enlargement, otherwise no significant findings. There is mild tricuspid insufficiency with nor mal pulmonary artery pressure. The patient did not feel well after he went home. He felt fatigued and somewhat lethargic on the bet a blockers as well as the anticoagulant he was given briefly. The anticoagulant was only for a very short time. He started having some chest pain, called our office complaining of pain in the left hodan e of his chest and he was directed to the emergency room. The patient's pain is localized. It seems to come and go. It is in the left side of his chest. He has got some Toradol, it seemed to help for a while, but it comes and goes, does not seem to be any w orse when he is walking. There is no substernal chest pain or pressure. PAST MEDICAL HISTORY: Positive for obesity, positive for a previous episode of atrial fibrillation. Previous CHADS-VASc score was 0. Therefore, long-term medical anticoagulation not indicated based o n current recommendation. ALLERGIES: None, although he did not seem to feel well on metoprolol 25 mg twice a day. REVIEW OF SYSTEMS: Please see previous documentation. PHYSICAL EXAMINATION: GENERAL: This is a pleasant gentleman. VITAL SIGNS: He is 5 foot 11 inches tall, weighs 360 pounds. BMI is 50. HEENT: Eyes, sclerae are nonicteric. Mouth, mucous membranes moist. NECK: Supple, no lymphadenopathy. LUNGS: Clear. No wheezing, rales or rhonchi. CARDIAC: Normal S1, normal S2. There is no murmur, rub or gallop. ABDOMEN: Obese, nontender. No hepatosplenomegaly. EXTREMITIES: Warm, dry. No clubbing or cyanosis. There is no edema. LABORATORY FINDINGS: Potassium is 3.9, LDL cholesterol was 67, was 49 in the previous admission. BNP was 42. Liver function tests were normal. Insulin level 26.5, hemoglobin A1c 5.5, which is in t he normal range. Previous TSH was normal. Thyroid tests were normal. The exercise portion of the stress test was don e today. EKG did not show any ischemic changes, did have some intermittent sinus bradycardia. Heart rate early this morning was in the 40s when he was sleeping. He says when he gets apprehensive, marissa etimes he feels his heart rate going to the 90-100 range. He has a pulse oximeter. He said he has f ound his heart rate to be as high as 140-150 at times. IMAGING: The CT scan of his chest showed no evidence of pulmonary embolism, but there was noted to b e some mild amount of calcium in the coronary arteries. ASSESSMENT: 1. Previous episode of atrial fibrillation. No documented recurrence. 2. Previous CHADS-VASc score of 0. 3. Morbid obesity. He is really trying to lose weight. This puts him at high risk of sleep apnea, which definitely increases his risk of atrial fibrillation. 4. Do not feel well on beta blockers. 5. Chest pain atypical for angina. PLAN: 1. The stress testing is being done. 2. Recommend aspirin 81 mg a day. 3. We will change from metoprolol to diltiazem. 4. If there is no ischemia, then it would be reasonable to release him home tomorrow. The patient u nderstands it is critically important for him to lose weight. The main thing he can do to try to red uce risk of recurrent atrial fibrillation is weight loss. He also has headaches. He has had a CAT s can, which was unremarkable of his head. The description sounds like muscle tension headaches. I di scussed this with him as well as relaxation techniques. I encouraged him to walk on a regular basis daily ideally. We will start him on low dose diltiazem, increase dose if needed.
[2018-05-09] MEDS: PARoxetine 20 MG TAB PO SCH (07:52)
[2018-05-09] MEDS: Enoxaparin Sodium 40 MG/0.4 ML SYRINGE SC SCH (07:53)
[2018-05-09 08:14] VITALS: TEMP 98
[2018-05-09] MEDS ORDERED: Regadenoson 0.4 MG/5 ML SYRINGE ONE (09:55)
[2018-05-09] MEDS: ALPRAZolam 0.25 MG TAB PO PRN (10:19)
--- NOTE | 2018-05-09 11:51 | PDOC.PN ---
- Subjective Encounter Start Date: 05/09/18 Encounter Start Time: 07:50 Patient seen and examined. No new complaints. No overnight events - Objective Resuscitation Status: Resuscitation Status FULL:Full Resuscitation MAR Reviewed: Yes Vital Signs & Weight: Vital Signs (12 hours) Temp Pulse Resp BP BP Pulse Ox 05/09/18 08:00 98.0 F 64 18 125/65 97 05/09/18 05:05 98.5 F 56 L 18 99/54 L 95 I&O: 05/08/18 05/09/18 05/10/18 06:59 06:59 06:59 Intake Total 400 0 Balance 400 0 Result Diagrams: 05/08/18 04:47 05/08/18 04:47 Radiology Reviewed by me: Yes EKG Reviewed by me: Yes Phys Exam - Physical Examination Constitutional: NAD HEENT: PERRLA, moist MMs, sclera anicteric Neck: no JVD, supple Respiratory: no wheezing, no rales, no rhonchi Cardiovascular: RRR, no significant murmur, no rub Gastrointestinal: soft, non-tender, no distention, positive bowel sounds Musculoskeletal: no edema, pulses present Neurological: non-focal, normal sensation, moves all 4 limbs Lymphatic: no nodes Psychiatric: normal affect, A&O x 3 Skin: no rash, normal turgor Dx/Plan (1) Chest pain Code(s): R07.9 - CHEST PAIN, UNSPECIFIED Status: Acute (2) Anxiety and depression Code(s): F41.9 - ANXIETY DISORDER, UNSPECIFIED; F32.9 - MAJOR DEPRESSIVE DISORDER, SINGLE EPISODE, UNSPECIFIED Status: Chronic (3) Morbid obesity with BMI of 50.0-59.9, adult Code(s): E66.01 - MORBID (SEVERE) OBESITY DUE TO EXCESS CALORIES; Z68.43 - BODY MASS INDEX (BMI) 50-59.9 , ADULT Status: Chronic (4) Paroxysmal atrial fibrillation Code(s): I48.0 - PAROXYSMAL ATRIAL FIBRILLATION Status: Chronic - Plan cont current plan of care, plan discussed w/ family * medication reviewed as below * symptomatic treatment * if stress test is normal, will discharge home later today. Review of Systems - Review of Systems Eyes: negative: Pain, Vision Change, Conjunctivae Inflammation, Eyelid Inflammation, Redness, Other ENT: negative: Ear Pain, Ear Discharge, Nose Pain, Nose Discharge, Nose Congestion, Mouth Pain, Mouth Swelling, Throat Pain, Throat Swelling, Other Respiratory: negative: Cough, Dry, Shortness of Breath, Hemoptysis, SOB with Excertion, Pleuritic Pain, Sputum, Wheezing Cardiovascular: negative: chest pain, palpitations, orthopnea, paroxysmal nocturnal dyspnea, edema, light headedness, other Gastrointestinal: negative: Nausea, Vomiting, Abdominal Pain, Diarrhea, Constipation, Melena, Hematochezia, Other Genitourinary: negative: Dysuria, Frequency, Incontinence, Hematuria, Retention , Other Musculoskeletal: negative: Neck Pain, Shoulder Pain, Arm Pain, Back Pain, Hand Pain, Leg Pain, Foot Pain, Other Skin: negative: Rash, Lesions, [place], Bruising, Other - Medications/Allergies Allergies/Adverse Reactions: Allergies Allergy/AdvReac Type Severity Reaction Status Date / Time No Known Drug Allergies Allergy Verified 04/16/18 00:04 Medications: Current Medications Acetaminophen (Tylenol) 650 mg PO Q4H PRN PRN Reason: Headache/Fever or Mild Pain Hydrocodone Bitart/Acetaminophen ([place] 5/325) 1 tab PO Q4H PRN PRN Reason: Moderate Pain (4-6) Last Admin: 05/08/18 23:25 Dose: 1 tab Al Hydroxide/Mg Hydroxide (Maalox) 15 ml PO Q4H PRN PRN Reason: Heartburn or Indigestion Alprazolam (Xanax) 0.25 mg PO Q6H PRN PRN Reason: Anxiety Last Admin: 05/09/18 10:19 Dose: 0.25 mg Artificial Tears (Tears Renewed 15ml Bottle) 0 drop EA EYE PRN PRN PRN Reason: Dry Eyes Aspirin (Aspirin Chewable) 81 mg PO DAILY [facility] Last Admin: 05/09/18 07:53 Dose: 81 mg Diltiazem HCl (Cardizem Cd) 180 mg PO 0600 [facility] Last Admin: 05/09/18 06:28 Dose: Not Given Enoxaparin Sodium (Lovenox) 40 mg SC 0900 [facility] Last Admin: 05/09/18 07:53 Dose: 40 mg Famotidine (Pepcid) 20 mg PO BIDPRN PRN PRN Reason: Heartburn or Indigestion Guaifenesin (Robitussin Sf) 200 mg PO Q4H PRN PRN Reason: Cough Hydralazine HCl (Apresoline) 10 mg SLOW IVP Q4H PRN PRN Reason: Systolic BP > 180 Loperamide HCl (Imodium) 2 mg PO PRN PRN PRN Reason: Diarrhea/Loose Stools Loratadine (Claritin) 10 mg PO DAILYPRN PRN PRN Reason: Sinus Symptoms Magnesium Hydroxide (Milk Of Magnesium) 30 ml PO DAILYPRN PRN PRN Reason: Constipation Mineral Oil/White Petrolatum (Eucerin Cream) 0 gm TOP BIDPRN PRN PRN Reason: Dry Skin Nitroglycerin (Nitrostat) 0.4 mg SL Q5MIN PRN PRN Reason: Chest Pain Ondansetron HCl (Zofran Odt) 4 mg PO Q6H PRN PRN Reason: Nausea/Vomiting Ondansetron HCl (Zofran) 4 mg IVP Q6H PRN PRN Reason: Nausea/Vomiting Paroxetine HCl (Paxil) 10 mg PO DAILY [facility] Last Admin: 05/09/18 07:52 Dose: 10 mg Phenol (Chloraseptic [place] 180 Ml Bot) 0 ml PO PRN PRN PRN Reason: Sore Throat Senna (Senokot) 2 tab PO HSPRN PRN PRN Reason: Constipation Sodium Chloride ([place] Nasal [place] 0.65%) 0 ml EA NARE QIDPRN PRN PRN Reason: Nasal Congestion Zolpidem Tartrate (Ambien) 5 mg PO HSPRN PRN PRN Reason: Insomnia
--- NOTE | 2018-05-09 13:14 | DIS ---
DATE OF ADMISSION: 05/07/2018 DATE OF DISCHARGE: 05/09/2018 PRIMARY CARE PHYSICIAN: Clarice Sanchez M.D. DISCHARGE DISPOSITION: Home. PRIMARY DISCHARGE DIAGNOSIS: Chest pain, ruled out acute coronary syndrome. SECONDARY DISCHARGE DIAGNOSES: Paroxysmal atrial fibrillation, morbid obesity with body mass index 50, anxiety and depression. PRIMARY PROCEDURE/OPERATION: None. RADIOLOGICAL INVESTIGATION: CT angiography negative for pulmonary embolism. Chest x-ray normal. Ultrasound showing fatty liver. Stress test negative for any ischemia. SIGNIFICANT LABORATORY DATA: WBC 10.9, hemoglobin 14.0, platelets 240. INR 1.1. Sodium 140, potassium 3.7, BUN 15, creatinine 0.95, calcium 9.3. Cardiac enzymes negative x2 and 1 troponin was indeterminant, BNP 42, LDL 67. DISCHARGE MEDICATIONS: Xanax 0.25 mg p.o. q.6 hourly p.r.n., aspirin 81 mg p.o. daily, cardizem 30 mg po tid., Paxil 10 mg p.o. daily. CONTRAINDICATIONS: None. CODE STATUS: FULL CODE. INPATIENT AXMINSTER WEAVER: Dr. Osborne. TEST RESULTS PENDING ON DISCHARGE: None. ALLERGIES: No known drug allergy. DISCHARGE PLAN: Post hospital, patient will follow up with primary care physician. HOSPITAL COURSE: A 33-year-old male with above-mentioned medical problem who was admitted by Dr. Geiger. Please see his H&P for further details. The patient was admitted for chest pain. His CT angio was negative for PE. Chest x -ray was normal. Electrocardiogram was normal. The patient was observed on telemetry floor. He underwent 2-day stress test protocol which was normal. Dr. Osborne was following while in hospital. We did abdominal ultrasound which was also unremarkable other than fatty liver changes. While in hospital, he was continued to complain of mild headache, but based on his description we are thinking about tension headache. We explained to him to follow up with her primary care physician or neurologist as an outpatient basis for further evaluation if needed. At this point, patient is medically stable for discharge. The patient is seen and examined at bedside today. Please see my progress note from today for further detail. dr osborne recommended to change metoprolol to cardizem on discharge MTDD
--- NOTE | 2018-05-09 14:00 | NM ---
NUCLEAR MEDICINE CARDIAC MYOCARDIAL PERFUSION SPECT EJECTION FRACTION STUDY WALL MOTION CINE: Date: 05/09/18 HISTORY: 33-year-old male with history of atrial fibrillation, presents with acute chest pain. TECHNIQUE: Number of days: 2 Rest study: Tc99m sestamibi (Cardiolite) dose: 33.0 mCi Pharmacologic stress: Lexiscan: 0.4 mg Stress study: Tc99m sestamibi (Cardiolite) dose: 30.0 mCi FINDINGS: CARDIAC (MYOCARDIAL PERFUSION) SPECT There are no reversible myocardial perfusion defects. EJECTION FRACTION STUDY EF = 61% WALL MOTION CINE Normal. IMPRESSION: No evidence of reversible ischemia. RY Mayer POS: NIKKI
[2018-05-09 17:50] VITALS: BP 131/71
--- NOTE | 2018-05-11 14:04 | STRESS ---
Acquisition Time: 2018-05-08 08:47:02 Total Exercise Time: 00:01:00 Test Indications: CHEST PAIN Medications: Protocol: LEXISCAN Max HR: 111 BPM 59% of Pred: 187 BPM Max BP: 132/068 mmHG Max Work Load: 1.0 METS RESTING ECG: NORMAL SINUS RHYTHM AT 77 BPM SYMPTOMS: SHORTNESS OF BREATH NORMAL BP RESPONSE ECTOPY: NONE ECG STRESS: NO SIGNIFICANT CHANGES INTERPRETATION: AWAIT NUCLEAR IMAGES FOR DEFINITIVE DIAGNOSIS Confirmed by AYAKA RICHARDSON ([id number]), development editor EM WHEELER ([id number]) on 05/11/2018 2:03:31 PM Referred By: MD Dontrell FOX Confirmed By:AYAKA RICHARDSON
== END 2018-05-09 17:31 | disposition home or self-care (01) ==
LOC: ERS 11:51 → 2SW 17:49
PROVIDERS: ADMIT Internal Medicine; ATTEND Internal Medicine
DX: R07.9 Chest pain, unspecified (principal); R73.9 Hyperglycemia, unspecified; I48.0 Paroxysmal atrial fibrillation; F41.8 Other specified anxiety disorders; E66.01 Morbid (severe) obesity due to excess calories; Z68.43 Body mass index [BMI] 50.0-59.9, adult; Z79.82 Long term (current) use of aspirin; Z79.899 Other long term (current) drug therapy
CPT/HCPCS: 36415; 71045; 71275; 76705; 78452; 80048; 80053; 80061; 82553; 83880; 84484; 85025; 85610; 85730; 93005; 93017; 94760; 96372; 96374; A9500; G0378; J1650; J1885; J2785